=== PATIENT | male | born 1975 | race American Indian/Alaskan Native ===

== ENCOUNTER 2020-06-07 07:46 | Emergency (ER) | payer BC ==
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
[2020-06-07 07:57] VITALS: BP 115/82
[2020-06-07 08:22] LABS: Basophils % (Auto) 0.6 % (0.0-1.8); Eosinophils # (Auto) 0.3 K/mm3 (0.0-0.4); Eosinophils % (Auto) 3.8 % (0.0-4.3); Hematocrit 46.1 % (35.5-45.6); Hemoglobin 15.6 gm/dl (11.8-15.2); Lymphocytes # (Auto) 2.4 K/mm3 (1.2-5.4); Lymphocytes % (Auto) 36.3 % (13.4-35.0); Mean Corpuscular HGB Conc 34 % (32-34); Mean Corpuscular Volume 86 fl (84-94); Monocytes # (Auto) 0.4 K/mm3 (0.0-0.8); Monocytes % (Auto) 6.3 % (0.0-7.3); Platelet Count 233 K/mm3 (140-440); Red Blood Count 5.38 M/mm3 (3.65-5.03); Red Cell Distribution Width 14.9 % (13.2-15.2)
[2020-06-07 08:30] LABS: Alanine Aminotransferase 25 units/L (7-56); Albumin 3.9 g/dL (3.9-5); BUN/Creatinine Ratio 9; Blood Urea Nitrogen 10 mg/dL (9-20); Hemolysis Index 6
[2020-06-07 08:59] LABS: Bilirubin,Urine NEG (Negative); Blood,Urine NEG (Negative); Color,Urine Yellow (Yellow); Mucus,Urine FEW /HPF; Protein,Urine <15 mg/dL mg/dL (Negative); Urobilinogen,Urine < 2.0 mg/dL (<2.0)
[2020-06-07] MEDS ORDERED: ONDANSETRON 4 MG/2 ML INJ IV ONE (09:05)
[2020-06-07] MEDS ORDERED: SODIUM CHLORIDE 0.9% 1000 ML 1,000 ML IV ONE (09:05)
[2020-06-07] MEDS ORDERED: KETOROLAC 30 MG/1 ML INJ IV ONE (09:05)
--- NOTE | 2020-06-07 10:02 | Cat Scan Report ---
CT ABDOMEN AND PELVIS WITH CONTRAST INDICATION: Left upper quadrant pain, epigastric pain, elevated lipase, duration 3 days CONTRAST: 100 cc Omnipaque 300 IV COMPARISON: None available. All CT scans at this location are performed using CT dose reduction for ALARA by means of automated e xposure control. FINDINGS: Lung bases are clear. No pneumoperitoneum is seen. No free fluid is noted. No lymphadenopat hy is seen. Small cyst is noted in the liver. Small cyst is seen in the right kidney. No other masses are noted. Gallbladder and bile ducts appear within normal limits. Pancreas shows no focal masses or ductal dilatation but there is mild haziness in the fat adjacent to the body of the pancreas and min imally around the tail. No abnormal fluid collections are seen to suggest a pseudocyst. No urinary tract changes are seen. Small left renal calculus is noted. No evidence of bowel obstructi on is seen. Appendix appears within normal limits. Colonic diverticulosis is seen without convincing evidence of acute diverticulitis. Thickening of the sigmoid colon in an area of diverticulosis is of unknown chronicity but I do not see definite acute inflammation. IMPRESSION: Mild uncomplicated acute pancreatitis Signer Name: Kb Saenz MD Signed: 06/07/2020 9:58 AM Workstation Name: [id number]
== END 2020-06-07 11:23 | disposition home or self-care (01) ==
LOC: ED 07:46
DX: K85.90 Acute pancreatitis without necrosis or infection, unspecified (principal); Z79.899 Other long term (current) drug therapy
CPT/HCPCS: 36415; 74177; 80053; 81001; 83690; 85025; 96361; 96374; 96375; 99284; J1885; J2405; J7030; Q9967